=== PATIENT | male | born 1940 | race Two or more races ===

== ENCOUNTER 2016-09-27 06:33 | Day surgery (SDC) | payer OTHER ==
[~2016-09-27] VITALS: Ht 172.7 cm; Wt 74.2 kg
[2016-09-27] VITALS (9 sets, daily range): BP systolic 123–184; BP diastolic 58–86; PULSE 18–100; RESP 15–19; Ht 172.7 cm; Wt 74.2 kg
[2016-09-27] MEDS ORDERED: LIDOCAINE 1% (MPF) 10 ML INJ ONE (06:48)
[2016-09-27] MEDS ORDERED: LIDOCAINE 2% (MDV) 20 ML INJ ONE (06:48)
[2016-09-27] MEDS ORDERED: BUPIVACAINE 0.75% (MPF) 10 ML INJ ONE (06:48)
[2016-09-27] MEDS ORDERED: TIMOLOL 0.5% 5 ML OPH ONE (06:49)
[2016-09-27] MEDS ORDERED: TETRACAINE 0.5% 4 ML OPH ONE (06:49)
[2016-09-27] MEDS ORDERED: EPINEPHrine 1 MG INJ ONE (06:49)
[2016-09-27] MEDS ORDERED: SODIUM HYALURONATE 14 MG/ML SYG ONE (06:56)
--- NOTE | 2016-09-27 07:19 | HPN ---
Date/Time of Note Date/Time of Note DATE: 09/27/16 TIME: 07:19 Interval H&P Admission Note Pt. seen H&P reviewed: No system changes BEBE TAFOYA MD September 27, 2016 07:19
[2016-09-27] MEDS ORDERED: NEPAFENAC 0.1% 3 ML OPH ONE (07:35)
[2016-09-27] MEDS ORDERED: CYCLOPENTOLATE 2% 2 ML OPH ONE (07:36)
[2016-09-27] MEDS ORDERED: PHENYLephrine 10% 5 ML OPH ONE (07:36)
[2016-09-27] MEDS ORDERED: MOXIFLOXACIN 0.5% 3 ML OPH ONE (07:36)
[2016-09-27] MEDS ORDERED: NEPAFENAC 0.1% 3 ML OPH OPER SCH (08:00)
[2016-09-27] MEDS ORDERED: PHENYLephrine 10% 5 ML OPH OPER SCH (08:00)
[2016-09-27] MEDS ORDERED: CYCLOPENTOLATE 2% 2 ML OPH OPER SCH (08:00)
[2016-09-27] MEDS ORDERED: MOXIFLOXACIN 0.5% 3 ML OPH OPER SCH (08:00)
[2016-09-27] MEDS ORDERED: SODIUM BICARBONATE (IV ADD) 50 ML ONE (08:10)
[2016-09-27] MEDS ORDERED: PIOG15TA4 PO (08:16)
[2016-09-27] MEDS ORDERED: OMEP20CA16 PO (08:17)
[2016-09-27] MEDS ORDERED: LOSA50TA6 PO (08:18)
[2016-09-27] MEDS ORDERED: ATOR20TA38 PO (08:18)
[2016-09-27] MEDS ORDERED: CLOP75TA27 PO (08:20)
[2016-09-27] MEDS ORDERED: NOV70303I SC (08:20)
[2016-09-27] MEDS ORDERED: ASPI81TA3 PO (08:21)
[2016-09-27] MEDS ORDERED: METF-480 PO (08:22)
[2016-09-27] MEDS ORDERED: NA BICARB 50 MEQ/50 ML VIAL INJ ONE (08:47)
[2016-09-27] MEDS ORDERED: FENTAnyl 50 MCG/ML VIAL IV PRN (09:00)
[2016-09-27] MEDS ORDERED: morphine (1 MG/ML) 10ML SYRINGE IV PRN (09:00)
[2016-09-27] MEDS ORDERED: hydrALAzine 20 MG INJ IV PRN (09:00)
[2016-09-27] MEDS ORDERED: ONDANSETRON 4 MG INJ IV PRN (09:00)
[2016-09-27] MEDS ORDERED: LABETALOL HCL 20MG INJ IV PRN (09:00)
[2016-09-27] MEDS ORDERED: PROPOFOL 20 ML ONE (09:42)
[2016-09-27] MEDS ORDERED: LIDOCAINE 1% (MDV) 20 ML INJ ONE (09:42)
[2016-09-27] MEDS ORDERED: hydrALAzine 20 MG INJ ONE (09:54)
--- NOTE | 2016-09-27 11:24 | OPR ---
DATE OF OPERATION: 09/27/2016 PREOPERATIVE DIAGNOSIS: Grade IV senile nuclear sclerotic cataract, left eye. POSTOPERATIVE DIAGNOSIS: Grade IV senile nuclear sclerotic cataract, left eye. PLANNED PROCEDURE: Phacoemulsification with implantation of an intraocular lens. DESCRIPTION OF PROCEDURE: Following standard preparation and draping of this patient, a speculum wa s placed for immobilization of the lids. An access port was made at the 4:30 o'clock position throu gh the anterior limbal region after which a small amount of non-preserved anesthetic was placed in t he eye. The anterior chamber was then completely filled with a viscoelastic substance. A 3 mm ante rior limbal incision was made in the superior temporal quadrant into the anterior chamber. A cystit ome was now used to make a fairly large "can law office assistant" type capsulorrhexis knowing full well that the capsule was unable to be seen, and that it was firmly adherent to the lens material within the capsu le. A 27-gauge needle was now used to place irrigating solution between the capsule and the lens; h owever, because of the density of the cataract, one could not see the fluid making a separation of t he lens and capsule at the back of the lens. The phacoemulsification tip was now introduced into th e eye and controlling tumbling of the lens, the phacoemulsification was now started. It was immedia tely noticed that as the phaco unit moved across the lens, all it did was make a tube of hard lens m aterial which then had to be removed by making cross cuts in various directions so as to get the johann s into the phaco tip. The lens was now pierced with the phaco unit after making a fairly deep centr al trough in the lens. The lens was then pierced by the phaco tip and elevated out of what was thou ght to be the capsular bag into the area at the level of the iris. The lens was now manipulated wit h both the phaco unit and a second instrument so as to chop the lens at various places to break it u p so as to facilitate removal. As the phaco unit was removed from the center of the lens at one poi nt, the lens remaining fell into the vitreous cavity. It did not appear that there was a hole in th e capsule, but rather it appeared that there was no posterior capsule at all to be seen. At this po int, I figured that the capsule was adherent to the lens and with elevation of the lens into the lev el of the iris, the lens simply came with the capsule was completely dislocated. At this point, it was determined that there would be no further attempt to remove the lens material in the vitreous, a nd as such, all incisions were tightly closed with 10-0 Vicryl sutures. The eye was flooded with 5% Betadine solution, following which Vigamox drops were placed in the eye. A light pressure dressing was applied, and the patient returned to the recovery room in satisfactory condition. The patient will be seen in the office tomorrow, and the situation explained to the family, at which time he will be referred to a retinal specialist for removal of the retained lens material within t he vitreous cavity. The patient returned to the recovery room. Dictated By: BEBE DURBIN/DEBRA Conf#: [id number] DID#: [id number]
== END 2016-09-27 11:23 | disposition home or self-care (01) ==
LOC: SDS 06:33
PROVIDERS: ATTEND Ophthalmology
DX: H25.12 Age-related nuclear cataract, left eye (principal); I10 Essential (primary) hypertension; E11.9 Type 2 diabetes mellitus without complications
CPT/HCPCS: 66984; 82962; J0171; J0360; Z7512; Z7610